=== PATIENT | female | born 1975 | race Caucasian/White ===

== ENCOUNTER 2020-09-23 16:29 | Emergency (ER) | payer BC ==
[2020-09-23] MEDS ORDERED: Ibuprofen 800 MG TAB ONE (17:02)
[2020-09-23] MEDS ORDERED: Acetaminophen 500 MG TAB ONE (17:02)
== END 2020-09-23 17:40 | disposition home or self-care (01) ==
LOC: MADERS 16:29
DX: J06.9 Acute upper respiratory infection, unspecified (principal); M79.10 Myalgia, unspecified site; Z79.899 Other long term (current) drug therapy
CPT/HCPCS: 71046

== ENCOUNTER 2020-09-27 06:22 | Emergency (ER) | payer BC ==
[2020-09-27] MEDS ORDERED: Lidocaine 1% 20 ML MDV ONE (07:14)
[2020-09-27] MEDS ORDERED: cefTRIAXone\\ROCEPHIN 1 GM VIAL ONE (07:14)
[2020-09-27] MEDS ORDERED: Ketorolac Tromethamine 60 MG/2 ML VIAL ONE (07:14)
== END 2020-09-27 07:42 | disposition home or self-care (01) ==
LOC: MADERS 06:22
DX: J15.9 Unspecified bacterial pneumonia (principal); R11.2 Nausea with vomiting, unspecified; Z79.899 Other long term (current) drug therapy
CPT/HCPCS: 96372; 99283; J0696; J1885

== ENCOUNTER 2023-03-24 21:58 | Emergency (ER) | payer BC, SELFPAY ==
[2023-03-24 22:18] LABS: #Basophils 0.1 thou/uL (0.0-0.2); #Eosinphils 0.1 thou/uL (0.0-0.7); #Lymphocytes 2.4 thou/uL (1.20-3.40); #Monocytes 0.5 thou/uL (0.11-0.59); #Neutrophils 3.1 thou/uL (1.40-6.50); %Basophils 1.1 % (0.0-1.0); %Eosinophils 1.6 % (0.0-10.0); %Lymphocytes 38.5 % (21.0-51.0); %Monocytes 8.7 % (0.0-10.0); %Neutrophils 50.1 % (42.0-75.0); Hematocrit 41.5 % (36.0-47.0); Hemoglobin 13.9 g/dL (12.0-16.0); Mean Corpuscular HGB CONC 33.4 g/dL (32.0-36.0); Mean Corpuscular Hemoglobin 30.5 pg (27.0-31.0); Mean Corpuscular Volume 91.3 fl (78.0-98.0); Mean Platelet Volume 8.3 fL (7.4-10.4); Platelet Count 262 10x3/uL (130-400); RBC Distribution Width 11.8 % (11.5-14.5); Red Blood Cell (RBC) Count 4.55 mill/uL (4.20-5.40); White Blood Cell (WBC) Count 6.2 10x3/uL (4.8-10.8)
[2023-03-24] MEDS ORDERED: Nitroglycerin 2% Ointment 1 INCH/1 GM Packet ONE ×2 (22:18→22:25)
[2023-03-24] MEDS ORDERED: Aspirin Chewable 81 MG TAB ONE (22:18)
[2023-03-24 22:39] LABS: ALT (SGPT) 23 U/L (8-55); AST (SGOT) 19 U/L (5-34); Albumin 4.4 g/dL (3.5-5.0); Alkaline Phosphatase 71 U/L (40-110); Anion Gap 13 mmol/L (10-20); BUN (Urea Nitrogen) 15 mg/dL (7.0-18.7); Bilirubin, Total 0.3 mg/dL (0.2-1.2); Calc. Creatinine Clearance 0 mL/min (70-130); Calcium 9.1 mg/dL (7.8-10.44); Carbon Dioxide 28 mmol/L (22-29); Chloride 105 mmol/L (98-107); Estimated GFR 100; Globulin 2.4 g/dL (2.4-3.5); Glucose 112 mg/dL (70-105); Lipase 59 U/L (8-78); Potassium 3.3 mmol/L (3.5-5.1); Protein, Total 6.8 g/dL (6.0-8.3); Sodium 143 mmol/L (136-145)
[2023-03-24 22:40] LABS: Troponin I Less than 0.010 ng/mL (< 0.028)
[2023-03-25 00:57] LABS: Troponin I Less than 0.010 ng/mL (< 0.028)
== END 2023-03-25 01:13 | disposition home or self-care (01) ==
LOC: MADERS 21:58
DX: R07.89 Other chest pain (principal); I25.2 Old myocardial infarction; Z86.718 Personal history of other venous thrombosis and embolism
CPT/HCPCS: 36415; 71045; 80053; 83690; 83880; 84484; 85025; 93005; 94760